=== PATIENT | male | born 1980 | race Caucasian/White ===

== ENCOUNTER 2023-11-10 18:52 | Emergency (ER) | payer MEDICAID ==
[2023-11-10 19:58] LABS: BASOPHILS PERCENT AUTO 0.4 % (0.0-1.0); EOSINOPHILS ABSOLUTE AUTO 0.2 K/mm3 (0.0-0.4); EOSINOPHILS PERCENT AUTO 1.6 % (0.0-6.0); HEMATOCRIT 49.1 % (42.0-52.0); HEMOGLOBIN 16.4 gm/dl (14.0-18.0); IMMATURE GRAN ABSOLUTE AUTO 0.07 K/mm3 (0.00-0.05); IMMATURE GRAN PERCENT AUTO 0.7 % (0.0-0.4); LYMPHOCYTES ABSOLUTE AUTO 2.5 K/mm3 (1.0-4.8); LYMPHOCYTES PERCENT AUTO 24.1 % (24.0-44.0); MEAN CORPUSCULAR HEMOGLOBIN 32.2 pg (28.0-32.0); MEAN CORPUSCULAR HGB CONC 33.4 g/dl (32.0-36.0); MEAN CORPUSCULAR VOLUME 96.5 fl (83.0-99.0); MEAN PLATELET VOLUME 8.4 fl (9.4-12.4); MONOCYTES PERCENT AUTO 9.9 % (0.0-8.0); NEUTROPHILS ABSOLUTE AUTO 6.5 K/mm3 (1.8-7.7); NEUTROPHILS PERCENT AUTO 63.3 % (41.0-71.0); PLATELET COUNT,PLT 326 K/mm3 (150-400); RED BLOOD CELL COUNT 5.09 M/mm3 (4.52-5.90); WHITE BLOOD CELL COUNT,WBC 10.28 K/mm3 (3.9-11.3)
[2023-11-10] MEDS: Colchicine 0.6 MG Tab PO ONE (20:09)
[2023-11-10] MEDS: predniSONE 10 MG Tab PO ONE (20:09)
[2023-11-10] MEDS: Sulfamethoxazole/Trimethoprim 800-160 MG Tab PO ONE (20:09)
[2023-11-10 20:19] LABS: ALBUMIN 3.9 g/dl (3.4-5.0); ANION GAP 14.3 (5-15); BILIRUBIN TOTAL 0.5 mg/dL (0.2-1.0); BUN/CREATININE RATIO 18.6 (14-18); CALCIUM 9.3 mg/dL (8.5-10.1); CREATININE 0.7 mg/dL (0.7-1.3); EST CRCL DRUG DOSING (CG) 152.43 mL/min; POTASSIUM,K 4.3 mEq/L (3.5-5.1); PROTEIN TOTAL,TP 7.9 g/dl (6.4-8.2); URIC ACID 5.7 mg/dL (3.5-7.2)
[2023-11-10] MEDS ORDERED: Colchicine 0.6 MG Tab PO ONE (20:54)
== END 2023-11-10 21:06 | disposition home or self-care (01) ==
LOC: JD.ED 18:52
DX: M10.9 Gout, unspecified (principal)
CPT/HCPCS: 36415; 80053; 84550; 85025; 99283; A9270; J7512

== ENCOUNTER 2024-11-27 21:33 | Emergency (ER) | payer MEDICAID ==
[2024-11-27] MEDS: Sodium Chloride 0.9% 10 ML Syringe FLUSH PRN (22:51)
[2024-11-27] MEDS: Iopamidol 612 MG/ML 100 ML Bottle IVPUSH ONE (22:51)
[2024-11-27] MEDS: Iopamidol 612 MG/ML 30 ML SDV IV ONE (22:51)
== END 2024-11-27 22:54 | disposition home or self-care (01) ==
LOC: JD.ED 21:33
DX: S22.42XA Multiple fractures of ribs, left side, initial encounter for closed fracture (principal); F17.210 Nicotine dependence, cigarettes, uncomplicated; Z79.899 Other long term (current) drug therapy; V48.1XXA Car passenger injured in noncollision transport accident in nontraffic accident, initial encounter; Y93.89 Activity, other specified
CPT/HCPCS: 70450; 71260; 72125; 72128; 72131; 74177; 99284; Q9967